=== PATIENT | female | born 1985 | race Caucasian/White ===

== ENCOUNTER 2017-12-20 13:37 | Inpatient (IN) | payer OTHER ==
[2017-12-20] MEDS ORDERED: ONDANSETRON 4 MG/2 ML VIAL IVPUSH ONE (15:36)
[2017-12-20] MEDS ORDERED: ONDANSETRON 4 MG/2 ML VIAL ONE (15:44)
--- NOTE | 2017-12-20 15:46 | PDOC ---
History of Present Illness - General Chief Complaint: Pain Stated Complaint: RT SIDE PAIN, VOMITING Time Seen by Provider: 12/20/17 15:25 History Source: Patient, Family Exam Limitations: No Limitations - History of Present Illness Initial Comments: This is a 32 YOF with h/o obesity who p/w right flank and RUQ pain worsening for the past 5 days, also with nausea and NBNB vomiting x6 over the past day. The pain is now 8/10, feels like muscle soreness, radiates to her entire right side, and is made worse by jostling on the car ride here to the ED. She has never had this pain and has taken no medications for the symptoms. She has not fallen or injured herself or had sick contacts lately. She denies fever, chills , epigastric pain, chest pain, SOB, dysuria, black/bloody stool, constipation, or other symptoms. Past History - Past Medical History Allergies/Adverse Reactions: Allergies Allergy/AdvReac Type Severity Reaction Status Date / Time No Known Allergies Allergy Verified 12/20/17 13:45 Home Medications: Ambulatory Orders NK [No Known Home Medication] 12/20/17 COPD: No - Suicide/Smoking/Psychosocial Hx Smoking History: Former smoker Have you smoked in the past 12 months: Yes If you are a former smoker, when did you quit?: 10/2017 Information on smoking cessation initiated: No Hx Alcohol Use: Yes (SOCIALLY) Drug/Substance Use Hx: Yes (MARIJUANA SOCIALLY) Substance Use Type: Alcohol, Marijuana Review of Systems - Review of Systems Able to Perform ROS?: Yes Constitutional: Yes: Loss of Appetite. No: Chills, Fever, Unexplained wgt Loss HEENTM: No: Nose Congestion, Throat Pain Respiratory: No: Cough, Shortness of Breath Cardiac (ROS): No: Chest Pain, Palpitations ABD/GI: Yes: Nausea, Vomiting, Other (right upper abdominal pain and right flank pain). No: Constipated : No: Burning, Dysuria Musculoskeletal: No: Back Pain, Neck Pain Integumentary: No: Bruising, Rash Neurological: No: Headache, Numbness, Tingling, Weakness, Dizziness Endocrine: No: Unexplained Weight Gain, Unexplained Weight Loss *Physical Exam - Vital Signs Last Vital Signs Temp Pulse Resp BP Pulse Ox 98.6 F 85 18 113/57 99 12/20/17 13:45 12/20/17 13:45 12/20/17 13:45 12/20/17 13:45 12/20/17 13:45 - Physical Exam General Appearance: Yes: Nourished, Appropriately Dressed, Mild Distress, Obese , Other (answering appropriately, adult female laying on left side in hospital bed, splinting right flank with right hand, holding still) HEENT: positive: EOMI, LACEY, Normal ENT Inspection, Normal Voice, Hearing Grossly Normal. negative: Scleral Icterus (R), Scleral Icterus (L), Nasal Congestion Neck: positive: Trachea midline, Supple. negative: Tender, Rigid Respiratory/Chest: positive: Lungs Clear, Normal Breath Sounds. negative: Respiratory Distress, Crackles, Rhonchi, Stridor, Wheezing Cardiovascular: positive: Regular Rhythm, Regular Rate, S1, S2. negative: Edema , Murmur Gastrointestinal/Abdominal: positive: Normal Bowel Sounds, Tender (RUQ ttp), Soft, Other (positive Armando's sign, no peritoneal signs). negative: Organomegaly, Pulsatile Mass, Distended, Guarding, Rebound Musculoskeletal: positive: Normal Inspection, CVA Tenderness (R). negative: CVA Tenderness (L), Decreased Range of Motion, Vertebral Tenderness Extremity: positive: Normal Capillary Refill, Normal Inspection, Normal Range of Motion. negative: Tender, Cyanosis Integumentary: positive: Normal Color, Dry, Warm. negative: Erythema, Rash, Bruising Neurologic: positive: operations intern II-XII NML intact (grossly), Fully Oriented, Alert, Normal Mood/Affect, Normal Response, Motor Strength 5/5 ED Treatment Course - LABORATORY CBC & Chemistry Diagram: 12/20/17 15:52 12/20/17 15:52 - RADIOLOGY Radiology Studies Ordered: Category Date Time Status CHEST X-RAY PORTABLE* [RAD] Stat Radiology 12/20/17 15:38 Ordered ABDOMEN US -LIMITED [US] Stat Ultrasound 12/20/17 15:38 Ordered Medical Decision Making - Medical Decision Making 12/20/17 15:55 DDX IBNLT cholecystitis, gallstone pancreatitis, cholangitis, renal stone, UTI/ pyelonephritis, appendicitis, musculoskeletal pain, etc. Ordered is CBCD, CMP, lipase, UA cx, RUQ US, EKG, CXR, u-preg. 01/24/18 17:00 Patient requires 0.5 mg Dilaudid in addition to Ofirmev and Zofran which she received previously. 12/20/17 18:12 Pt's labs result without leukocytosis or LFT elevations, negative lipase. US shows stone within the GB but no additional e/o cholecystitis or CBD dilation. Patient continues to have RUQ ttp on exam. Page sent to [facility] general surgeon. 12/20/17 18:40 Spoke with [facility] surgery consult Dr. Gracia, will see the patient tomorrow on the IP side. MDMB sent to [facility] [place] for admission. 12/20/17 18:46 Patient requiring repeat dose of Dilaudid as her pain has returned. 12/20/17 18:[address] Rubin who agrees with admission to Med/Surg. Admit order placed and consult order placed. *DC/Admit/Observation/Transfer Diagnosis at time of Disposition: Cholelithiasis Qualifiers: Cholelithiasis location: gallbladder Cholecystitis presence: without cholecystitis Biliary obstruction: with biliary obstruction Qualified Code(s): K80.21 - Calculus of gallbladder without cholecystitis with obstruction Vomiting Qualifiers: Vomiting type: unspecified Vomiting Intractability: non-intractable Nausea presence: with nausea Qualified Code(s): R11.2 - Nausea with vomiting, unspecified Abdominal pain Qualifiers: Abdominal location: right lower quadrant Qualified Code(s): R10.31 - Right lower quadrant pain - Discharge Dispostion Condition at time of disposition: Guarded Admit: Yes - Referrals Referrals: Brannon Mensah [Primary Care Provider] - - Patient Instructions - Post Discharge Activity
[2017-12-20 16:45] LABS: BASO % 0.2 % (0-2.0); EOS % 0.9 % (0-4.5); HEMATOCRIT 32.7 % (32.4-45.2); HEMOGLOBIN 10.1 GM/dL (10.7-15.3); MCH 21.3 pg (25.7-33.7); MEAN CELL VOLUME 68.7 fl (80-96); MEAN PLT VOLUME 8.1 fl (7.5-11.1); MONO % 7.1 % (3.8-10.2); NEUT % 63.8 % (42.8-82.8); PLATELET COUNT 208 K/MM3 (134-434); RBC 4.76 M/mm3 (3.60-5.2); WHITE BLOOD COUNT 9.1 K/mm3 (4.0-10.0)
[2017-12-20] MEDS ORDERED: HYDROmorphone HCL CARPU-JECT 1 MG/1 ML DISP.SYRIN IVPUSH ONE ×2 (16:46→18:45)
[2017-12-20 16:47] LABS: ADD RBC MORPHOLOGY YES
[2017-12-20] MEDS ORDERED: HYDROmorphone HCL CARPU-JECT 2 MG/1 ML DISP.SYRIN ONE ×2 (16:50→19:22)
[2017-12-20 16:55] LABS: URINE APPEARANCE CLEAR; URINE BILIRUBIN NEGATIVE (NEGATIVE); URINE BLOOD NEGATIVE (NEGATIVE); URINE COLOR LTYELLOW; URINE GLUCOSE (UA) NEGATIVE (NEGATIVE); URINE KETONE NEGATIVE (NEGATIVE); URINE LEUK ESTERASE TRACE (NEGATIVE); URINE NITRITE NEGATIVE (NEGATIVE); URINE PROTEIN NEGATIVE (NEGATIVE); URINE UROBILINOGEN NEGATIVE mg/dL (0.2-1.0)
[2017-12-20 17:05] LABS: EPI CELLS RARE /HPF (FEW); URINE MUCUS RARE
[2017-12-20 17:09] LABS: ALBUMIN 3.1 g/dl (3.4-5.0); ANION GAP 10 (8-16); BILIRUBIN,TOTAL 0.3 mg/dL (0.2-1.0); BLOOD UREA NITROGEN 8 mg/dL (7-18); CALCIUM 8.2 mg/dL (8.5-10.1); CHLORIDE 105 mmol/L (98-107); CO2 26 mmol/L (21-32); CREATININE 0.5 mg/dL (0.55-1.02); GLUCOSE,RANDOM 75 mg/dL (74-106); MAGNESIUM 2.1 mg/dL (1.8-2.4); PHOSPHOROUS 2.3 mg/dL (2.5-4.9); POTASSIUM 4.1 mmol/L (3.5-5.1); SGOT/AST 11 U/L (15-37); SGPT/ALT 22 U/L (12-78); SODIUM 141 mmol/L (136-145); TOT PROT 6.6 g/dl (6.4-8.2)
[2017-12-20 17:10] LABS: ALK PHOS 79 U/L (45-117)
--- NOTE | 2017-12-20 18:01 | PDOC ---
Attending Attestation - Resident Resident Name: Reva Hodge - ED Attending Attestation I have performed the following: I have examined & evaluated the patient, The case was reviewed & discussed with the resident, I agree w/resident's findings & plan, Exceptions are as noted - HPI HPI: 12/20/17 17:59 32 F with h/o obesity presenting to ER with several days of RUQ pain. Pt reports intermittent RUQ pain associated with nausea and vomiting for about 5 days. She endorses pain radiating down her entire right side. Denies F/C. Denies diarrhea/constipation. Pt denies flank pain, denies dysuria. States the pain is often exacerbated by eating. - Physicial Exam PE: 12/20/17 18:00 "GENERAL: Awake, alert, and fully oriented, in no acute distress HEAD: No signs of trauma EYES: PERRLA, EOMI, sclera anicteric, conjunctiva clear ENT: Auricles normal inspection, hearing grossly normal, nares patent, oropharynx clear without exudates. Moist mucosa NECK: Nontender, no stepoffs, Normal ROM, supple, no lymphadenopathy, JVD, or masses LUNGS: Breath sounds equal, clear to auscultation bilaterally. No wheezes, and no crackles HEART: Regular rate and rhythm, normal S1 and S2, no murmurs, rubs or gallops ABDOMEN: +RUQ TTP, no rebound/guarding, obese EXTREMITIES: Normal range of motion, no edema. No clubbing or cyanosis. No cords, erythema, or tenderness NEUROLOGICAL: Cranial nerves II through XII intact. 5/5 strength and sensation in all extremities, Normal speech, normal gait SKIN: Warm, Dry, normal turgor, no rashes or lesions noted. " - Medical Decision Making 12/20/17 18:00 32 F with RUQ pain + N/V for 5 days. Concerning for cholecystitis. Also consider pancreatitis. - Labs, lipase, UA - RUQ sono
[2017-12-20] MEDS ORDERED: PIPERACIL/TAZOB 3.375 GM 3.375 GM/50 ML PREMIX IVPB ONE (18:36)
[2017-12-20] MEDS ORDERED: PIPERACILLIN/TAZOB 3.375 GM 3.375 GM in DEXTROSE 5%-WATER - 100 ML IVPB ONE (18:45)
[2017-12-20] MEDS ORDERED: PIPERACILLIN/TAZOB 3.375 GM 3.375 GM/50 ML BAG IVPB ONE (19:23)
--- NOTE | 2017-12-20 19:24 | PN ---
Teaching Attending Note Name of Resident: Kathrin Noel ATTENDING PHYSICIAN STATEMENT I saw and evaluated the patient. I reviewed the resident's note and discussed the case with the resident. I agree with the resident's findings and plan as documented. SUBJECTIVE: 32 F with hx. of Obesity who presents with RUQ pain X 5 days duration. Also, notes associated nausea and non-bilious vomiting X 6. Notes her pain is 8/10. States her pain is mostly located in her RLQ radiating to her tight flank. Also , Has RUQ pain. NO chest pain, pressure, fevers or chills. OBJECTIVE: Physical: VS: Vital Signs Period Temp Pulse Resp BP Sys/Hernandez Pulse Ox Last 24 Hr 98.6 F 83-85 18-18 113-129/57-82 96-99 GEN: NAD, Resting in bed, AA0X3 HEENT: NCAT, PERRL, throat without erythema or exudates CARD: RRR S1, S2 RESP: CTAB ABD:BSx4, TTP RLQ EXT: - C/C/E CBCD WBC 9.1 K/mm3 (4.0-10.0) 12/20/17 15:52 RBC 4.76 M/mm3 (3.60-5.2) 12/20/17 15:52 Hgb 10.1 GM/dL (10.7-15.3) L 12/20/17 15:52 Hct 32.7 % (32.4-45.2) 12/20/17 15:52 MCV 68.7 fl (80-96) L 12/20/17 15:52 MCHC 31.0 g/dl (32.0-36.0) L 12/20/17 15:52 RDW 20.0 % (11.6-15.6) H 12/20/17 15:52 Plt Count 208 K/MM3 (134-434) 12/20/17 15:52 MPV 8.1 fl (7.5-11.1) 12/20/17 15:52 CMP Sodium 141 mmol/L (136-145) 12/20/17 15:52 Potassium 4.1 mmol/L (3.5-5.1) 12/20/17 15:52 Chloride 105 mmol/L (98-107) 12/20/17 15:52 Carbon Dioxide 26 mmol/L (21-32) 12/20/17 15:52 Anion Gap 10 (8-16) 12/20/17 15:52 BUN 8 mg/dL (7-18) 12/20/17 15:52 Creatinine 0.5 mg/dL (0.55-1.02) L 12/20/17 15:52 Creat Clearance w eGFR > 60 (>60) 12/20/17 15:52 Random Glucose 75 mg/dL (74-106) 12/20/17 15:52 Calcium 8.2 mg/dL (8.5-10.1) L 12/20/17 15:52 Total Bilirubin 0.3 mg/dL (0.2-1.0) 12/20/17 15:52 AST 11 U/L (15-37) L 12/20/17 15:52 ALT 22 U/L (12-78) 12/20/17 15:52 Alkaline Phosphatase 79 U/L (45-117) 12/20/17 15:52 Total Protein 6.6 g/dl (6.4-8.2) 12/20/17 15:52 Albumin 3.1 g/dl (3.4-5.0) L 12/20/17 15:52 CXR- Negative ABS US- Cholelithiasis w/o sonographic evidence of acute choley. Diffuse fatty infilteration of the liver. ASSESSMENT AND PLAN: 32 F with hx. of Obesity who presents with RUQ pain X 5 days duration, who is being admitted for abdominal pain 1.) Abdominal Pain - Ddx: Acute Choleycystitis Vs. Acute Appendicitis - CT Abd/Pelvis - Sx Consult - HIDA in AM - NPO - IVF - C/W Zosyn - ID consult - Cx 2.) Dvt Ppx - Low Risk - SCDS Place in Med-Sx
[2017-12-20 20:23] LABS: ANISOCYTOSIS 2+; OVALOCYTE 1+; PLATELET ESTIMATE ADEQUATE
--- NOTE | 2017-12-20 20:47 | MSN ---
Admitting History and Physical - Admission Chief Complaint: Right upper quadrant abdominal pain History of Present Illness: Pt is a 32 y/o female presenting with right upper quadrant abdominal pain that began in September of 2017. Pt claims that the pain is constant and dull in nature. The pain radiates down to the right lower extremity. Patient has had vomiting but no hematemesis. Pt denies that it is exacerbated by ingestion of food. She has not taken any medication for the pain. Patient recently returned from a trip to [place] but denies any food or events there that exacerbated the pain. Pt denies any fever, chills, chest pain, shortness of breath, diarrhea or dysuria. History Source: Patient Limitations to Obtaining History: No Limitations - Past Surgical History Past Surgical History: Yes: None - Smoking History Smoking history: Former smoker Have you smoked in the past 12 months: Yes If you are a former smoker, when did you quit?: 10/2017 - Alcohol/Substance Use Hx Alcohol Use: Yes (SOCIALLY) - Social History Usual Living Arrangement: Yes: With Significant Other History of Recent Travel: Yes (Traveled to [place]) Home Medications - Allergies Allergies/Adverse Reactions: Allergies Allergy/AdvReac Type Severity Reaction Status Date / Time No Known Allergies Allergy Verified 12/20/17 13:45 - Home Medications Home Medications: Ambulatory Orders NK [No Known Home Medication] 12/20/17 Physical Examination Vital Signs: Vital Signs Temperature 98.6 F 12/20/17 13:45 Pulse Rate 83 12/20/17 19:31 Respiratory Rate 18 12/20/17 19:31 Blood Pressure 129/82 12/20/17 19:31 O2 Sat by Pulse Oximetry (%) 96 12/20/17 19:31 Constitutional: Yes: Well Nourished, No Distress, Calm Cardiovascular: Yes: Regular Rate and Rhythm Respiratory: Yes: Regular, CTA Bilaterally Gastrointestinal: Yes: Normal Bowel Sounds, Soft Edema: No Labs: CBC, BMP 12/20/17 15:52 12/20/17 15:52 Problem List - Problems (1) Cholelithiasis Assessment/Plan: -IV Fluids -Pain management -Consult surgery for evaluation Code(s): K80.20 - CALCULUS OF GALLBLADDER W/O CHOLECYSTITIS W/O OBSTRUCTION Qualifiers: Cholelithiasis location: gallbladder Cholecystitis presence: without cholecystitis Biliary obstruction: with biliary obstruction Qualified Code(s ): K80.21 - Calculus of gallbladder without cholecystitis with obstruction
[2017-12-20 21:01] VITALS: BMI 45.9
[2017-12-20] MEDS: SODIUM CHLORIDE 1,000 ML IV SCH (22:32)
[2017-12-20] MEDS: ONDANSETRON 4 MG/2 ML VIAL IVPUSH PRN (22:34)
[2017-12-20] MEDS ORDERED: morphine CARPU-JECT 8 MG/1 ML DISP.SYRIN IVPUSH ONE (23:26)
--- NOTE | 2017-12-20 23:32 | HP ---
CHIEF COMPLAINT: RUQ pain PCP: HISTORY OF PRESENT ILLNESS: 33 y/o obese F with no significant PMH presents to the ED c/o R flank and RUQ pain for the past five days, as well as six episodes of NBNB emesis. As per pt, ever since September, she has had intermittent RUQ pain. However, she has never seen a PCP or GI doctor to have it checked, though it has constantly bothered her. This past weekend, she went to [place] to celebrate her birthday and noticed increased severity in RUQ pain upon returning from her trip --09/05, with constant soreness/throbbing sensation, and radiation down to her R knee. Pain was not alleviated with advil or massage of the area. Pt also endorses 5-6 episodes of NBNB emesis during this time, as well as multiple loose BM's ( without blood). Pt denies a/w food, however states that she last ate chicken wings before the episode worsened. Otherwise, denies GAMBOA, fever, chills, SOB, or changes in urinary function. ER course was notable for: (1) dilaudid 0.5 mg x 2 (2) zofran x 1 (3) zosyn 3.375 x 1 Recent Travel: to [place] this past weekend PAST MEDICAL HISTORY: denies PAST SURGICAL HISTORY: denies Social History: Smoking: quit smoking 1.5 months ago, had smoked on and off prior for ~10 yrs Alcohol: socially Drugs: marijuana in past, quit Family History: denies Allergies No Known Allergies Allergy (Verified 12/20/17 13:45) HOME MEDICATIONS: Home Medications Medication Instructions Recorded NK [No Known Home Medication] 12/20/17 REVIEW OF SYSTEMS CONSTITUTIONAL: Absent: fever, chills, diaphoresis, generalized weakness, malaise, loss of appetite, weight change HEENT: Absent: rhinorrhea, nasal congestion, throat pain, throat swelling, difficulty swallowing, mouth swelling, ear pain, eye pain, visual changes CARDIOVASCULAR: Absent: chest pain, syncope, palpitations, irregular heart rate, lightheadedness , peripheral edema RESPIRATORY: Absent: cough, shortness of breath, dyspnea with exertion, orthopnea, wheezing, stridor, hemoptysis GASTROINTESTINAL: +abdominal pain, nausea, vomiting, diarrhea Absent: abdominal pain, abdominal distension, nausea, vomiting, diarrhea, constipation, melena, hematochezia GENITOURINARY: Absent: dysuria, frequency, urgency, hesitancy, hematuria, flank pain, genital pain MUSCULOSKELETAL: Absent: myalgia, arthralgia, joint swelling, back pain, neck pain SKIN: Absent: rash, itching, pallor HEMATOLOGIC/IMMUNOLOGIC: Absent: easy bleeding, easy bruising, lymphadenopathy, frequent infections ENDOCRINE: Absent: unexplained weight gain, unexplained weight loss, heat intolerance, cold intolerance NEUROLOGIC: Absent: headache, focal weakness or paresthesias, dizziness, unsteady gait, seizure, mental status changes, bladder or bowel incontinence PSYCHIATRIC: Absent: anxiety, depression, suicidal or homicidal ideation, hallucinations. PHYSICAL EXAMINATION Vital Signs 12/20/17 12/20/17 12/20/17 13:45 19:31 20:47 Temperature 98.6 F 98.4 F Pulse Rate 85 72 Pulse Rate [ 83 Apical] Respiratory 18 18 20 Rate Blood Pressure 113/57 117/63 Blood Pressure 129/82 [Left Arm] O2 Sat by Pulse 99 96 Oximetry (%) GENERAL: Pleasant. Obese female, lying down, awake, alert, and fully oriented, in mild distress. HEAD: Normal with no signs of trauma. EYES: Pupils equal, round and reactive to light, extraocular movements intact, sclera anicteric, conjunctiva clear. EARS, NOSE, THROAT: Moist mucous membranes. NECK: Normal range of motion, supple without lymphadenopathy LUNGS: Breath sounds equal, clear to auscultation bilaterally. No wheezes, and no crackles. No accessory muscle use. HEART: Regular rate and rhythm, normal S1 and S2 without murmur, rub or gallop. ABDOMEN: Soft, obese, TTP R flank, RUQ, non distended, normoactive bowel sounds , +guarding MUSCULOSKELETAL: no CVA tenderness appreciated LOWER EXTREMITIES: 2+ posterior tibial pulses, warm, well-perfused. No peripheral edema. NEUROLOGICAL: Cranial nerves II-XII intact. Laboratory Results 12/20/17 12/20/17 12/20/17 15:52 15:52 16:15 WBC 9.1 Hgb 10.1 L Hct 32.7 Plt Count 208 Sodium 141 Potassium 4.1 Chloride 105 Carbon Dioxide 26 BUN 8 Creatinine 0.5 L Calcium 8.2 L Phosphorus 2.3 L AST 11 L Urine Appearance Clear Urine Protein Negative Ur Leukocyte Esterase Trace Urine WBC (Auto) 4 Micro -UCx: pending Radio -CXR: WNL, without infiltrates -Abd U/S: cholelithiasis, no sonographic evidence of acute cholecystitis, diffuse fatty infiltration -Renal sono: no hydronephrosis ASSESSMENT/PLAN: 33 y/o obese F with no significant PMH presents to the ED c/o R flank and RUQ pain for the past five days, as well as six episodes of NBNB emesis. Pt admitted to med-surg for r/o acute appendicitis vs. acute cholecystitis. #R/o acute appendicitis vs. acute cholecystitis -pt currently not septic- afebrile, without white count, labs WNL. CT: Cholecystitis, with no sonographic evidence cholecystitis -however still important to r/o cholecystitis -Surgery consult- Dr. Thomas -F/u CT abdomen w/o contrast - r/o appendicitis. Possible as pt has unusual complaint of RUQ pain radiation to RLE -F/u HIDA, to determine GB EF, also to check for choledocholithiasis -Also f/u amylase, lipase. R/o pancreatitis d/t abdominal pain -NPO, except ice chips -IVF -Continue Zosyn 3.35 q6hr for intraabdominal abx coverage -ID consult- Dr. Savage #PPX -SCD's, in case of possible procedure #F/E/N -IV NS 100 mls/hr -Monitor electrolytes -NPO except ice chips #Dispo med-surg Visit type - Emergency Visit Emergency Visit: Yes ED Registration Date: 12/20/17 Care time: The patient presented to the Emergency Department on the above date and was hospitalized for further evaluation of their emergent condition. - New Patient This patient is new to me today: Yes Date on this admission: 12/21/17 - Critical Care Critical Care patient: No
[2017-12-21 00:14] LABS: AMYLASE 43 U/L (25-115); LIPASE 78 U/L (73-393)
[2017-12-21] MEDS ORDERED: PIPERACILLIN/TAZOB 3.375 GM 3.375 GM in DEXTROSE 5%-WATER - 100 ML IVPB ONE (01:00)
[2017-12-21] MEDS ORDERED: PIPERACIL/TAZOB 3.375 GM 3.375 GM/50 ML PREMIX IVPB SCH (01:00)
[2017-12-21] MEDS ORDERED: morphine CARPU-JECT 2 MG/1 ML DISP.SYRIN IVPUSH PRN (05:20)
[2017-12-21] MEDS: ONDANSETRON 4 MG/2 ML VIAL IVPUSH PRN (05:57)
[2017-12-21] MEDS ORDERED: ACETAMINOPHEN 500 MG TABLET (FP) PO ONE (06:45)
--- NOTE | 2017-12-21 07:23 | MSN ---
Progress Note (short form) - Note Progress Note: SUBJECTIVE CC: RUQ pain radiating to leg HPI: Pt is a 33 y/o obese F with no significant PMHx presented to ED with complaint of R flank and RUQ pain for past five days and six episodes of non bilious, non bloody emesis. She was given dialudid 0.5 mg x2, Zofran x 1, and Zosyn 3.375 x 1 in ED for suspected cholecystis without radiographic changes vs. appendicitis. She states she has had a "sore" pain in R flank to R leg since September. She has not seen a doctor or taken anything for this pain and it has gotten progressively worse. She does not remember trauma, heavy exercises , recent massages to the area. 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 She states she sits up straight and does not sit cross legged or with poor posture. She reports it is hard to move and pain is constant; she came in yesterday because pain was limiting her ROM and she wanted to celebrate her birthday in [place], where she ate with family. She reports having to return to hotel every time she ate out, having watery, non bloody brown diarrhea with chunks. She states the pain does not change with food. She has had episodic nausea since November and started vomiting/diarrhea last Monday, 12/15. She reports having strings of blood in her vomit this AM but has never seen any blood in her vomit until today. Her vomit was bilious with no food. She reports mouth is dry. She had headache this AM and was given ASA with good relief; headache was R U/L forehead with no aura. She reports she does not like taking pills and is healthy with no significant family medical history. Pharmacy is [facility] in [facility]. Last Vital Signs Temp Pulse Resp BP Pulse Ox 98.4 F 76 20 116/52 97 12/21/17 06:00 12/21/17 06:00 12/21/17 06:00 12/21/17 06:00 12/21/17 05:49 + Lasegues, + straight leg test. CBC, BMP 12/20/17 15:52 12/20/17 15:52 Laboratory Results - last 24 hr 12/20/17 12/20/17 12/20/17 15:52 15:52 15:52 WBC 9.1 RBC 4.76 Hgb 10.1 L Hct 32.7 MCV 68.7 L MCH 21.3 L MCHC 31.0 L RDW 20.0 H Plt Count 208 MPV 8.1 Neutrophils % 63.8 Lymphocytes % 28.0 Monocytes % 7.1 Eosinophils % 0.9 Basophils % 0.2 Hypochromia 2+ Platelet Estimate Adequate Platelet Comment Polychromasia 1+ Poikilocytosis 1+ Anisocytosis 2+ Microcytosis 2+ Ovalocytes 1+ Sodium 141 Potassium 4.1 Chloride 105 Carbon Dioxide 26 Anion Gap 10 BUN 8 Creatinine 0.5 L Creat Clearance w eGFR > 60 Random Glucose 75 Calcium 8.2 L Phosphorus 2.3 L Magnesium 2.1 Total Bilirubin 0.3 AST 11 L ALT 22 Alkaline Phosphatase 79 Total Protein 6.6 Albumin 3.1 L Total Amylase Lipase 83 Urine Color Urine Appearance Urine pH Ur Specific [place] Urine Protein Urine Glucose (UA) Urine Ketones Urine Blood Urine Nitrite Urine Bilirubin Urine Urobilinogen Ur Leukocyte Esterase Urine WBC (Auto) Urine RBC (Auto) Ur Epithelial Cells Urine Mucus Urine HCG, Qual Blood Type Antibody Screen 12/20/17 12/20/17 12/20/17 16:15 16:15 21:30 WBC RBC Hgb Hct MCV MCH MCHC RDW Plt Count MPV Neutrophils % Lymphocytes % Monocytes % Eosinophils % Basophils % Hypochromia Platelet Estimate Platelet Comment Polychromasia Poikilocytosis Anisocytosis Microcytosis Ovalocytes Sodium Potassium Chloride Carbon Dioxide Anion Gap BUN Creatinine Creat Clearance w eGFR Random Glucose Calcium Phosphorus Magnesium Total Bilirubin AST ALT Alkaline Phosphatase Total Protein Albumin Total Amylase Lipase Urine Color Ltyellow Urine Appearance Clear Urine pH 6.0 Ur Specific [place] 1.016 Urine Protein Negative Urine Glucose (UA) Negative Urine Ketones Negative Urine Blood Negative Urine Nitrite Negative Urine Bilirubin Negative Urine Urobilinogen Negative Ur Leukocyte Esterase Trace Urine WBC (Auto) 4 Urine RBC (Auto) 4 Ur Epithelial Cells Rare Urine Mucus Rare Urine HCG, Qual Negative Blood Type O POSITIVE Antibody Screen Negative 12/20/17 22:30 WBC RBC Hgb Hct MCV MCH MCHC RDW Plt Count MPV Neutrophils % Lymphocytes % Monocytes % Eosinophils % Basophils % Hypochromia Platelet Estimate Platelet Comment Polychromasia Poikilocytosis Anisocytosis Microcytosis Ovalocytes Sodium Potassium Chloride Carbon Dioxide Anion Gap BUN Creatinine Creat Clearance w eGFR Random Glucose Calcium Phosphorus Magnesium Total Bilirubin AST ALT Alkaline Phosphatase Total Protein Albumin Total Amylase 43 Lipase 78 Urine Color Urine Appearance Urine pH Ur Specific [place] Urine Protein Urine Glucose (UA) Urine Ketones Urine Blood Urine Nitrite Urine Bilirubin Urine Urobilinogen Ur Leukocyte Esterase Urine WBC (Auto) Urine RBC (Auto) Ur Epithelial Cells Urine Mucus Urine HCG, Qual Blood Type Antibody Screen Active Medications Generic Name Dose Route Start Last Admin Trade Name Freq PRN Reason Stop Dose Admin Sodium Chloride 1,000 mls @ 100 mls/hr 12/20/17 22:00 12/20/17 22:32 Normal Saline - IV 100 mls/hr ASDIR SHIRAZ Administration Morphine Sulfate 1 mg 12/21/17 05:20 Morphine Injection - IVPUSH Q4H PRN PAIN LEVEL 6-10 Ondansetron HCl 4 mg 12/20/17 21:50 12/21/17 05:57 Zofran Injection IVPUSH 4 mg Q6H PRN Administration NAUSEA AND/OR VOMITING Piperacillin/Tazobactam/Dextrose 3.375 gm 12/21/17 01:00 Zosyn 3.375gm Ivpb (Premix) IVPB Q6H-IV SHIRAZ
[2017-12-21 09:08] LABS: BASO % 0.2 % (0-2.0); EOS % 0.6 % (0-4.5); HEMATOCRIT 33.1 % (32.4-45.2); HEMOGLOBIN 9.8 GM/dL (10.7-15.3); MCH 20.5 pg (25.7-33.7); MCHC 29.5 g/dl (32.0-36.0); MEAN CELL VOLUME 69.3 fl (80-96); MEAN PLT VOLUME 8.3 fl (7.5-11.1); MONO % 7.1 % (3.8-10.2); NEUT % 77.1 % (42.8-82.8); PLATELET COUNT 198 K/MM3 (134-434); RBC 4.78 M/mm3 (3.60-5.2); RDW 19.9 % (11.6-15.6); WHITE BLOOD COUNT 11.1 K/mm3 (4.0-10.0)
[2017-12-21 09:27] LABS: ANION GAP 10 (8-16); BLOOD UREA NITROGEN 8 mg/dL (7-18); CALCIUM 8.3 mg/dL (8.5-10.1); CHLORIDE 104 mmol/L (98-107); CO2 25 mmol/L (21-32); CREATININE 0.6 mg/dL (0.55-1.02); GLUCOSE,RANDOM 88 mg/dL (74-106); MAGNESIUM 2.2 mg/dL (1.8-2.4); PHOSPHOROUS 2.6 mg/dL (2.5-4.9); POTASSIUM 3.9 mmol/L (3.5-5.1); SODIUM 139 mmol/L (136-145)
[2017-12-21] MEDS: SODIUM CHLORIDE 1,000 ML IV SCH (10:17)
--- NOTE | 2017-12-21 10:21 | PN ---
Progress Note (short form) - Note Progress Note: surgery pt seen and exmained. full consult to follow. 32f admitted for acute cholecystitis with gallstones on u/s. exam consistent with acute cholecystitis and ct r/o appendicitis. pt still with right sided pain despite abx and npo. will plan for choleycystectomy today. cont npo and abx. pt not responding to medical managment.
--- NOTE | 2017-12-21 10:32 | EKG ---
Test Reason : Blood Pressure : / mmHG Vent. Rate : 064 BPM Atrial Rate : 064 BPM P-R Int : 156 ms QRS Dur : 080 ms QT Int : 402 ms P-R-T Axes : 002 045 020 degrees QTc Int : 414 ms POOR DATA QUALITY, INTERPRETATION MAY BE ADVERSELY AFFECTED NORMAL SINUS RHYTHM WITH SINUS ARRHYTHMIA NORMAL ECG NO PREVIOUS ECGS AVAILABLE Confirmed by SHELLIE SANDHU MD ([id number]) on 12/21/2017 10:32:28 AM Referred By: Confirmed By:SHELLIE SANDHU MD
[2017-12-21] MEDS ORDERED: HYDROmorphone HCL CARPU-JECT 1 MG/1 ML DISP.SYRIN IVPUSH PRN (10:37)
--- NOTE | 2017-12-21 11:35 | PN ---
Progress Note (short form) - Note Progress Note: ID Consult dictated Acute cholecystitis For cholecystectomy later today Continue prophylactic zosyn perioperatively
[2017-12-21] MEDS ORDERED: PIPERACILLIN/TAZOB 4.5 GM 4.5 GM/100 ML BAG IVPB SCH (11:45)
--- NOTE | 2017-12-21 12:27 | CONS ---
DATE OF CONSULTATION: 12/21/2017 REASON FOR CONSULTATION: Acute cholecystitis and cholelithiasis. REQUESTING PHYSICIAN: This is an emergency room consultation requested by the emergency room physician. The patient was subsequently admitted to the hospital and is being seen and evaluated there. BRIEF HISTORY: This is a 32-year-old female who presented to [facility] with severe right upper quadrant abdominal pain, nausea, and vomiting for several days. The emergency department was concerned for acute cholecystitis, and an ultrasound report done in the emergency room confirmed gallstones. Patient was admitted to the hospital and started on intravenously antibiotic Zosyn. Despite this, she has remained in pain overnight, although she is no longer having nausea or vomiting. She went for a CT scan of her abdomen and pelvis this morning, which was unremarkable, the exception of gallstones noted. PAST MEDICAL HISTORY: Negative. PAST SURGICAL HISTORY: Nil. SOCIAL HISTORY: Significant for quitting tobacco. Positive for occasional alcohol consumption. FAMILY HISTORY: Negative for malignancy in the immediate family. REVIEW OF SYSTEMS: General: Denies fatigue or malaise. Cardiac: Denies chest pain or palpitations. Respiratory: Denies shortness of breath or wheeze. Gastrointestinal: Currently, she has only mild nausea. She did have vomiting yesterday. Genitourinary: Denies dysuria. Musculoskeletal: Denies joint pain, joint swelling. Psychiatric: Denies anxiety, depression, or hearing voices. PHYSICAL EXAMINATION: General: This is a morbidly obese 32-year-old female who appears to be in pain. Vital signs: She is afebrile. HEENT: Her head is normocephalic. Her sclerae anicteric. Neck: Supple. Chest: Clear. Abdomen: Soft. She has significant right upper quadrant tenderness with rebound. She has no surgical scars, no obvious hernias. Extremities: Have no edema. REVIEW OF HER LABORATORY: Her white blood cell count is now elevated at 11.1, which is an increase from yesterdays arrival in the emergency room. She also now has a higher percentage of neutrophils. Her chemistries are unremarkable with normal liver function test. Her urinalysis is noted to have 4 white blood cells and 4 red blood cells. She is not . IMAGING: As in HPI. There is no evidence of obstructive uropathy on CT scan, as well. ASSESSMENT: This is a 32-year-old female with severe right upper quadrant pain, nausea and vomiting, right upper quadrant tenderness with rebound and a rising white blood cell count despite Zosyn antibiotic. Ultrasound and CT scan both confirm cholelithiasis. Clinically, this is acute cholecystitis, not responding well to medical management. At this point, I agree with the choice of Zosyn antibiotic and will move in the direction of surgery. Currently, make plans for arranging an operating team. Patient is agreeable to surgery and does not wish to continue any further medical management. Risks and benefits of surgery have been explained to the patient in detail. These are including, but not limited to, the possibility of conversion to open, the possibility of common bile duct injury, the possibility of cystic duct stump leak, possibility of injury to viscera, the possibility of blood loss requiring blood transfusion, possibility of infection, the possibility of misdiagnosis, plus a multitude of medical risks including, but not limited to, cardiac, neurologic, pulmonary, and vascular complications, even . The patient understands these risks and is agreeable to surgery. DO RIVKA GUADARRAMA/[id number]
--- NOTE | 2017-12-21 12:54 | CONS ---
INFECTIOUS DISEASE CONSULTATION DATE OF CONSULTATION: DATE OF DICTATION: 12/21/2017 REASON FOR CONSULTATION: The patient is an obese 32-year-old female who is evaluated for acute cholecystitis. HISTORY OF PRESENT ILLNESS: The patient states that she had developed right upper quadrant pains in September 2017. She did not seek medical attention at that time. Since then, she has had recurrent episodes of right upper quadrant pain. Over the past 4-5 days, she has had moderately severe right upper quadrant abdominal pain. It is now associated with nausea and vomiting for 1 day prior to admission. She presented to the emergency room where she was examined and found to have right upper quadrant tenderness. A sonogram showed the presence of gallbladder stones. CAT scan showed cholelithiasis without evidence of dilated ducts. There was no CT evidence of acute cholecystitis. The appendix appeared normal. She was empirically treated with Zosyn. She denies any associated fever or chills. PAST MEDICAL HISTORY: Negative. HOME MEDICATIONS: None. ALLERGIES: No known allergies. SOCIAL HISTORY: Lives at home. Former smoker. Occasional EtOH. SYSTEMS REVIEW: Neurologic: No loss of consciousness, seizure activity, focal weakness. Cardiac: Negative chest pain or palpitations. Respiratory: Negative cough or sputum production. Gastrointestinal: Negative vomiting or diarrhea. Genitourinary: Negative for urinary tract infection. LABORATORY DATA: White count 11.1, hematocrit 33.1, platelet count 198. BUN 8, creatinine 0.6. Total bilirubin 0.3. Alkaline phosphatase 79, AST 11. Lipase 78, amylase 43. Urinalysis: White cells 4. PHYSICAL EXAMINATION: General: She is awake and alert, obese, in no acute distress. Vital Signs: Temperature 98.0; blood pressure 102/68; pulse 72, regular; respirations 20 per minute. HEENT: Sclerae are anicteric. Heart: Sounds S1, S2. Lungs: Clear. Abdomen: Obese, soft. There is right upper quadrant tenderness to palpation. Positive Armando sign. Extremities: Negative for edema. IMPRESSION: 1. Acute cholecystitis. 2. Morbid obesity. RECOMMENDATIONS: Continue prophylactic Zosyn 4.5 g IV piggyback every 8 hours. Patient for cholecystectomy later today. Thank you for the kind referral. Mana [id number]
--- NOTE | 2017-12-21 15:56 | OP ---
Operative Note - Note: Operative Date: 12/21/17 Pre-Operative Diagnosis: acute cholecystitis, cholelithiasis Operation: laparoscopic cholecystectomy, lavage Findings: pale, edematous gb Surgeon: Keith Lyn Licensed Certified Orthotist: Chicho Sanz Anesthesia: General Specimens Removed: gb Estimated Blood Loss (mls): 10
[2017-12-21] MEDS ORDERED: ROCURONIUM BROMIDE 50 MG/5 ML VIAL ONE (16:24)
[2017-12-21] MEDS ORDERED: fentaNYL CITRATE 250 MCG/5 ML VIAL ONE (16:24)
[2017-12-21] MEDS ORDERED: PROPOFOL 20 ML ONE ×2 (16:24→17:11)
[2017-12-21] MEDS ORDERED: LIDOCAINE HCL/PF 2% SDV 5ML VIAL ONE (16:25)
[2017-12-21] MEDS ORDERED: DEXAMETHASONE SOD PHOSPHATE 4 MG/1 ML VIAL ONE ×2 (16:25→16:47)
[2017-12-21] MEDS ORDERED: MIDAZOLAM HCL 2 MG/2 ML SINGLE DOSE VIAL ONE (16:25)
--- NOTE | 2017-12-21 16:33 | PN ---
Teaching Attending Note Name of Resident: Beck Arenas ATTENDING PHYSICIAN STATEMENT I saw and evaluated the patient. I reviewed the resident's note and discussed the case with the resident. I agree with the resident's findings and plan as documented. SUBJECTIVE:c/o R flank pain that has persisted. slight relief with pain medications. states she been having this on/off pain for 2 months now. can not relate pain to eating or activity. no recent change to diet, however was recently in [place] on vacation. no trauma or physical activity. denies CP, SOB, fever, chills, N/V/C/D OBJECTIVE: Last Vital Signs Temp Pulse Resp BP Pulse Ox 98.1 F 70 20 110/67 97 12/21/17 14:43 12/21/17 14:43 12/21/17 09:00 12/21/17 14:43 12/21/17 09:00 General NAD CV S1 S2 RRR no murmur/rub/gallop Lungs CTA B/L no wheezing/rales/rhonchi Abdomen soft +RUQ pain +rueda sign. negative rovsing sign.mcburney point, negative obtruator sign Back no bone point tenderness, +muscle spasm on the L thoracic vertebrae ASSESSMENT AND PLAN: 32yo F with PMH morbid obesity presented to the ER with nausea/vomiting and R flank pain 1. Biliary colic- multiple episodes of biliary colic. pain persistes despite NPO and abx. u/s and CT showing cholelithasis but no acute cholecystitis, CBD normal. negative for acute appendicitis. plan for HIDA scan and OR for cholecystectomy. cont zosyn for now. will likely not require postoperatively. pain control 2. Morbid obesity- BMI 45.9. dietary and lifestyle changes. bariatric referral as outpatient. 3. DVT ppx- lovenox
--- NOTE | 2017-12-21 16:52 | PN ---
Physical Exam: SUBJECTIVE: Patient seen and examined. Complains of RUQ abdominal pain, and flank pain that radiates down to the right leg. She also endorses nausea, vomiting and headache. She says she has not had a BM. OBJECTIVE: Vital Signs Period Temp Pulse Resp BP Sys/Hernandez Pulse Ox Last 24 Hr 98.0 F-98.4 F 70-83 18-20 102-129/52-82 96-97 GENERAL: morbidly obese, Curled in position. In mild distress. HEAD: Normal with no signs of trauma. EYES: Pupils equal, round and reactive to light, extraocular movements intact, sclera anicteric, conjunctiva clear EARS, NOSE, THROAT: Dry mucous membranes. NECK: supple without lymphadenopathy LUNGS: Breath sounds equal, clear to auscultation bilaterally. No wheezes, and no crackles. No accessory muscle use. HEART: Regular rate and rhythm, normal S1 and S2 without murmur, rub or gallop. ABDOMEN: +BS, RUQ/RLQ tenderness to palpation with guarding. + rueda sign, +R CVA tenderness MUSCULOSKELETAL: Normal range of motion at all joints. No bony deformities or tenderness. No CVA tenderness. LOWER EXTREMITIES: cool lower extremities b/l. No calf tenderness. No peripheral edema. NEUROLOGICAL: Cranial nerves II-XII intact. Laboratory Results - last 24 hr 12/20/17 12/20/17 12/20/17 15:52 15:52 15:52 WBC 9.1 RBC 4.76 Hgb 10.1 L Hct 32.7 MCV 68.7 L MCH 21.3 L MCHC 31.0 L RDW 20.0 H Plt Count 208 MPV 8.1 Neutrophils % 63.8 Lymphocytes % 28.0 Monocytes % 7.1 Eosinophils % 0.9 Basophils % 0.2 Hypochromia 2+ Platelet Estimate Adequate Platelet Comment Polychromasia 1+ Poikilocytosis 1+ Anisocytosis 2+ Microcytosis 2+ Ovalocytes 1+ Sodium 141 Potassium 4.1 Chloride 105 Carbon Dioxide 26 Anion Gap 10 BUN 8 Creatinine 0.5 L Creat Clearance w eGFR > 60 Random Glucose 75 Calcium 8.2 L Phosphorus 2.3 L Magnesium 2.1 Total Bilirubin 0.3 AST 11 L ALT 22 Alkaline Phosphatase 79 Total Protein 6.6 Albumin 3.1 L Total Amylase Lipase 83 Urine Color Urine Appearance Urine pH Ur Specific [place] Urine Protein Urine Glucose (UA) Urine Ketones Urine Blood Urine Nitrite Urine Bilirubin Urine Urobilinogen Ur Leukocyte Esterase Urine WBC (Auto) Urine RBC (Auto) Ur Epithelial Cells Urine Mucus Urine HCG, Qual Blood Type Antibody Screen 12/20/17 12/20/17 12/20/17 16:15 16:15 21:30 WBC RBC Hgb Hct MCV MCH MCHC RDW Plt Count MPV Neutrophils % Lymphocytes % Monocytes % Eosinophils % Basophils % Hypochromia Platelet Estimate Platelet Comment Polychromasia Poikilocytosis Anisocytosis Microcytosis Ovalocytes Sodium Potassium Chloride Carbon Dioxide Anion Gap BUN Creatinine Creat Clearance w eGFR Random Glucose Calcium Phosphorus Magnesium Total Bilirubin AST ALT Alkaline Phosphatase Total Protein Albumin Total Amylase Lipase Urine Color Ltyellow Urine Appearance Clear Urine pH 6.0 Ur Specific [place] 1.016 Urine Protein Negative Urine Glucose (UA) Negative Urine Ketones Negative Urine Blood Negative Urine Nitrite Negative Urine Bilirubin Negative Urine Urobilinogen Negative Ur Leukocyte Esterase Trace Urine WBC (Auto) 4 Urine RBC (Auto) 4 Ur Epithelial Cells Rare Urine Mucus Rare Urine HCG, Qual Negative Blood Type O POSITIVE Antibody Screen Negative 12/20/17 12/21/17 12/21/17 22:30 08:00 08:00 WBC 11.1 H RBC 4.78 Hgb 9.8 L Hct 33.1 MCV 69.3 L MCH 20.5 L MCHC 29.5 L RDW 19.9 H Plt Count 198 MPV 8.3 Neutrophils % 77.1 D Lymphocytes % 15.0 D Monocytes % 7.1 Eosinophils % 0.6 Basophils % 0.2 Hypochromia Platelet Estimate Platelet Comment Polychromasia Poikilocytosis Anisocytosis Microcytosis Ovalocytes Sodium 139 Potassium 3.9 Chloride 104 Carbon Dioxide 25 Anion Gap 10 BUN 8 Creatinine 0.6 Creat Clearance w eGFR Random Glucose 88 Calcium 8.3 L Phosphorus 2.6 Magnesium 2.2 Total Bilirubin AST ALT Alkaline Phosphatase Total Protein Albumin Total Amylase 43 Lipase 78 Urine Color Urine Appearance Urine pH Ur Specific [place] Urine Protein Urine Glucose (UA) Urine Ketones Urine Blood Urine Nitrite Urine Bilirubin Urine Urobilinogen Ur Leukocyte Esterase Urine WBC (Auto) Urine RBC (Auto) Ur Epithelial Cells Urine Mucus Urine HCG, Qual Blood Type Antibody Screen Active Medications Generic Name Dose Route Start Last Admin Trade Name Freq PRN Reason Stop Dose Admin Enoxaparin Sodium 40 mg 12/22/17 10:00 Lovenox - SQ DAILY SHIRAZ Hydromorphone HCl 0.5 mg 12/21/17 10:37 12/21/17 10:52 Dilaudid Injection - IVPUSH 0.5 mg Q4H PRN Administration PAIN LEVEL 6-10 Sodium Chloride 1,000 mls @ 100 mls/hr 12/20/17 22:00 12/21/17 10:17 Normal Saline - IV 100 mls/hr ASDIR SHIRAZ Administration Piperacillin/Tazobactam/Dextrose 4.5 gm in 100 mls @ 200 mls/hr 12/21/17 11: 45 12/21/17 11:54 Zosyn 4.5gm Ivpb (Premix) IVPB 200 mls/hr Q8H-IV SHIRAZ Administration Protocol Ondansetron HCl 4 mg 12/20/17 21:50 12/21/17 05:57 Zofran Injection IVPUSH 4 mg Q6H PRN Administration NAUSEA AND/OR VOMITING Oxycodone HCl 7.5 mg 12/21/17 15:54 Roxicodone - PO Q4H PRN PAIN LEVEL 1-5 Pantoprazole Sodium 40 mg 12/22/17 10:00 Protonix Iv IVPUSH DAILY SHIRAZ Radio -CXR: WNL, without infiltrates -Abd U/S: cholelithiasis, no sonographic evidence of acute cholecystitis, diffuse fatty infiltration -Renal sono: no hydronephrosis -CT A/P w/o IV contrast: 1. Normal appendix. No evidence of bowel obstruction. No definite bowel wall thickening. 2. Cholelithiasis. No CT evidence of acute cholecystitis. Common bile duct is not dilated. 3. No obstructive uropathy. No evidence of urinary tract calculus. 4. Mild hepatic steatosis. ASSESSMENT/PLAN: 32yo F with PMH morbid obesity presented to the ER with nausea/vomiting and R flank pain and was found to have cholelithiasis. #Biliary colic -Abd U/S: cholelithiasis, no sonographic evidence of acute cholecystitis, diffuse fatty infiltration -persistent pain depsite NPO and Abx -Not septic, afebrile, no white count -Cont IV Abx, Zosyn 4.5gm -ID consult- Dr. Savage -CT A/P w/o contrast: Normal appendix. Cholelithiasis. No CT evidence of acute cholecystitis. Common bile duct is not dilated. -Surgery consult- Dr. Lyn: laparoscopic cholecystectomy scheduled for today. -Cont. Pain control w/ Oxycodone 7.5g q4h -NPO -IVF #Morbid Obesity -BMI 45.9 -Dietary and lifestyle changes -Bariatric referral as oupatient #PPX -SCD's, for scheduled surgery -Lovenox held #FEN -IV NS 100 mls/hr -Monitor electrolytes -NPO except ice chips #Dispo Will plan D/c once surgery completed and patient clinically stable for discharge. Visit type - Emergency Visit Emergency Visit: Yes ED Registration Date: 12/20/17 Care time: The patient presented to the Emergency Department on the above date and was hospitalized for further evaluation of their emergent condition. - New Patient This patient is new to me today: Yes Date on this admission: 12/21/17 - Critical Care Critical Care patient: No
[2017-12-21] MEDS ORDERED: NEOSTIGMINE METHYLSULFATE 0.5 MG/ML - 10 ML MDV ONE (17:13)
[2017-12-21] MEDS ORDERED: PROMETHAZINE HCL 25 MG/1 ML VIAL IVPUSH PRN (17:46)
[2017-12-21] MEDS: HYDROmorphone HCL CARPU-JECT 1 MG/1 ML DISP.SYRIN IVPUSH PRN ×2 (17:55→18:15)
[2017-12-21] MEDS ORDERED: HYDROmorphone HCL CARPU-JECT 2 MG/1 ML DISP.SYRIN ONE (17:57)
[2017-12-21] MEDS ORDERED: SODIUM CHLORIDE 1,000 ML IV SCH (18:00)
[2017-12-21] MEDS ORDERED: ONDANSETRON 4 MG/2 ML VIAL IVPUSH PRN (18:00)
[2017-12-21] MEDS ORDERED: HYDROmorphone HCL CARPU-JECT 2 MG/1 ML DISP.SYRIN IVPUSH PRN (18:00)
[2017-12-21] MEDS ORDERED: KETOROLAC TROMETHAMINE 30 MG/1 ML VIAL ONE (18:20)
[2017-12-21] MEDS ORDERED: PIPERACILLIN/TAZOBACTAM 4.5 GM VIAL IVPB ONE (19:30)
--- NOTE | 2017-12-21 21:02 | OP ---
DATE OF OPERATION: 12/21/2017 PREOPERATIVE DIAGNOSIS: Acute Cholecystitis. POSTOPERATIVE DIAGNOSIS: Acute Cholecystitis. PROCEDURE: Laparoscopic cholecystectomy, lavage. SURGEON: Keith Lyn DO TECHNICAL DEVELOPER: Chicho Sanz MD ANESTHESIOLOGIST: Sean Polk MD (general) DRAINS: None. SPECIMEN: Gallbladder. DISPOSITION: To recovery room in stable condition. BLOOD LOSS: Minimal. BRIEF HISTORY: This is a 32-year-old female who presented to [facility] Emergency Room with signs and symptoms of acute cholecystitis. She had an ultrasound of her abdomen as well as a CAT scan both confirming gallstones. The patient had significant right upper quadrant tenderness and clinically had acute cholecystitis. She presents now for cholecystectomy. She was failing medical management on Zosyn. DESCRIPTION OF PROCEDURE: The patient was placed in a supine position. After general anesthesia was initiated, the abdomen was prepped and draped in sterile fashion. A transverse incision was made infraumbilical with scalpel used to go through skin and subcutaneous tissue. The fascia was then lifted with Jacinto clamp. Veress needle was inserted, and pneumoperitoneum was created. Next, an 11-mm trocar was placed followed by insertion of a 10-mm 0-degree laparoscope. Next, an additional 11-mm trocar was placed subxiphoid, and two 5-mm trocars were placed in the right upper quadrant. Attention was then turned toward the right upper quadrant, and the gallbladder was seen. It was pale, edematous, distended consistent with acute cholecystitis. The fundus was lifted cephalad. The infundibulum retracted laterally. The peritoneum was dissected down exposing a small cystic duct and cystic artery. Both were clipped and divided. The gallbladder was then liberated from the liver bed using electrocautery, and hemostasis was maintained using electrocautery. At this point, the gallbladder was placed in a specimen bag and removed through the infraumbilical trocar site after a significant fascial dilatation and skin lengthening in order to deliver such a thickened gallbladder. The gallbladder was then sent to Pathology marked as specimen. A limited lavage was done, and all return was clear. Trocars were then removed under direct visualization. No bleeding was noted. Pneumoperitoneum was then released. The fascia of the infraumbilical trocar site was then closed with multiple interrupted 0 Vicryl sutures. The 4 skin incisions were closed with Biosyn, and Dermabond dressing was placed. Overall, the patient tolerated the procedure well. There were no complications. DO RIVKA GUADARRAMA/[id number] MTDD
[2017-12-21] MEDS: oxyCODONE HCL 5 MG TABLET PO PRN (21:46)
[2017-12-22] MEDS: oxyCODONE HCL 5 MG TABLET PO PRN ×5 (01:37→22:43)
[2017-12-22] MEDS: PIPERACILLIN/TAZOB 4.5 GM 4.5 GM in DEXTROSE 5%-WATER - 100 ML IVPB SCH ×2 (02:35→09:40)
[2017-12-22 08:47] LABS: HEMATOCRIT 29.7 % (32.4-45.2); HEMOGLOBIN 8.8 GM/dL (10.7-15.3); MCH 20.3 pg (25.7-33.7); MCHC 29.5 g/dl (32.0-36.0); MEAN CELL VOLUME 68.7 fl (80-96); MEAN PLT VOLUME 7.9 fl (7.5-11.1); PLATELET COUNT 199 K/MM3 (134-434); RBC 4.32 M/mm3 (3.60-5.2); RDW 20.1 % (11.6-15.6); WHITE BLOOD COUNT 12.8 K/mm3 (4.0-10.0)
[2017-12-22 09:16] LABS: CALCIUM 7.6 mg/dL (8.5-10.1); CHLORIDE 107 mmol/L (98-107); POTASSIUM 4.1 mmol/L (3.5-5.1); SODIUM 139 mmol/L (136-145)
[2017-12-22 09:21] LABS: ALBUMIN 2.9 g/dl (3.4-5.0); ALK PHOS 72 U/L (45-117); ANION GAP 8 (8-16); BILIRUBIN,TOTAL 0.3 mg/dL (0.2-1.0); BLOOD UREA NITROGEN 6 mg/dL (7-18); CO2 24 mmol/L (21-32); CREATININE 0.6 mg/dL (0.55-1.02); GLUCOSE,RANDOM 123 mg/dL (74-106); SGOT/AST 25 U/L (15-37); SGPT/ALT 33 U/L (12-78); TOT PROT 6.3 g/dl (6.4-8.2)
[2017-12-22] MEDS: PANTOPRAZOLE SODIUM 40 MG VIAL IVPUSH SCH (09:40)
[2017-12-22] MEDS: ENOXAPARIN NA (PORCINE) 40 MG/0.4 ML DISP.SYRIN SQ SCH (09:40)
[2017-12-22] MEDS ORDERED: BENZOCAINE/MENTH/CETYLPYRD CL 1 EACH LOZENGE MM PRN (10:10)
--- NOTE | 2017-12-22 10:10 | PN ---
Progress Note (short form) - Note Progress Note: Anesthesia post op note, POD#1 s/p cholecystectomy for acute cholecystitis, cholelithiasis, under GA. Pat seen and examined. Tolerating po.C/O sore throat. Reassured. Ordering cepacol Lozenges.
[2017-12-22] MEDS ORDERED: SODIUM CHLORIDE 1,000 ML IV SCH (10:29)
[2017-12-22 12:40] LABS: HEMATOCRIT 31.9 % (32.4-45.2); HEMOGLOBIN 9.5 GM/dL (10.7-15.3); MCH 20.5 pg (25.7-33.7); MCHC 29.9 g/dl (32.0-36.0); MEAN CELL VOLUME 68.5 fl (80-96); MEAN PLT VOLUME 8.7 fl (7.5-11.1); PLATELET COUNT 215 K/MM3 (134-434); RBC 4.66 M/mm3 (3.60-5.2); RDW 19.7 % (11.6-15.6); WHITE BLOOD COUNT 15.5 K/mm3 (4.0-10.0)
--- NOTE | 2017-12-22 12:59 | PN ---
Teaching Attending Note Name of Resident: Beck Arenas ATTENDING PHYSICIAN STATEMENT I saw and evaluated the patient. I reviewed the resident's note and discussed the case with the resident. I agree with the resident's findings and plan as documented. SUBJECTIVE:some abdominal pain with movement near the umbilical incision. tolerated diet. denies CP, SOB, fever, chills, N/V/C/D, no BRBPR, melena. no menses. no BM OBJECTIVE: Last Vital Signs Temp Pulse Resp BP Pulse Ox 98.3 F 76 18 97/66 97 12/22/17 08:00 12/22/17 08:00 12/22/17 08:00 12/22/17 08:00 12/21/17 21:00 General NAD Abdomen soft slightly distended. surgical incisions intact, no drainge or bleeding. slightly tender. ASSESSMENT AND PLAN: 32yo F with PMH morbid obesity presented to the ER with nausea/vomiting and R flank pain 1. Biliary colic- s/p laprascopic cholecytstecomy 12/21. no complications from surgery. no indication for abx at this time. will d/c with percocet. counseled on risks of taking narcotic medication. abuse and addicition potential. advised not to drive or operate machinery while taking medications and risks of constipation. will need to f/u with surgery next week. 2. Microcytic anemia- acute drop in Hgb. can be dilutional component vs during blood loss from surgery. minimal reported. will repeat Hgb. check iron studies. 3. Morbid obesity- BMI 45.9. dietary and lifestyle changes. educated on need to loose weight and risks factors assoc with overweight. does not want to consider bariatric surgery at this time. wants to attempt to loose weight on her own. counselled weight loss goal should be 1 lb per week. 4. DVT ppx- lovenox 5. d/c home pending repeat Hgb
--- NOTE | 2017-12-22 13:54 | PN ---
Progress Note (short form) - Note Progress Note: surgery pt seen and examined. feels well. no pain. tolerating diet. voiding. ambulating afebrile abd- soft, nt, nd, obese, incisions clean Laboratory Tests 12/22/17 12:07 WBC 15.5 H A/P 1) Pod#1- surgically stable for d/c on regular diet. off abx. off narcotics. f/u in about 2 weeks. [phone] ok to shower, ok to walk. ok to climb stairs. no lifting > 20lbs. 2 weeks off work. leukocytosis is reactive, no need for abx or continued hospitalization.
--- NOTE | 2017-12-22 17:20 | DS ---
Physical Exam: SUBJECTIVE: Patient seen and examined. S/p laparoscopic cholecystectomy. No acute events overnight. Patient says she feels much better than yesterday. Said her abdominal pain and right flank pain has completely resolved. She said the only thing that bothered her was her throat from surgery. She denies chest pain , nausea, vomiting, SOB, dizziness, abdominal pain, calf pain. OBJECTIVE: Vital Signs Period Temp Pulse Resp BP Sys/Hernandez Pulse Ox Last 24 Hr 98 F-98.6 F 72-90 14-20 94-127/60-81 91-100 PHYSICAL EXAM GENERAL: The patient is awake, alert, and fully oriented, in no acute distress. HEAD: Normal with no signs of trauma. EYES: PERRL, extraocular movements intact, conjunctiva clear. ENT: oropharynx clear without exudates, moist mucous membranes. NECK: Trachea midline, full range of motion, supple. LUNGS: Breath sounds equal, clear to auscultation bilaterally, no wheezes, no crackles, no accessory muscle use. HEART: Regular rate and rhythm, S1, S2 without murmur, rub or gallop. ABDOMEN: Soft, nontender, nondistended, hypoactive bowel sounds. Surgical incision site with no erythema, swelling or drainage. EXTREMITIES: 2+ pulses, warm, well-perfused, no edema. NEUROLOGICAL: Cranial nerves II through XII grossly intact. Normal speech, gait not observed. LABS Laboratory Results - last 24 hr 12/22/17 12/22/17 12/22/17 08:00 08:00 12:07 WBC 12.8 H 15.5 H RBC 4.32 4.66 Hgb 8.8 L D 9.5 L Hct 29.7 L 31.9 L MCV 68.7 L 68.5 L MCH 20.3 L 20.5 L MCHC 29.5 L 29.9 L RDW 20.1 H 19.7 H Plt Count 199 215 MPV 7.9 8.7 D Sodium 139 Potassium 4.1 Chloride 107 Carbon Dioxide 24 Anion Gap 8 BUN 6 L Creatinine 0.6 Creat Clearance w eGFR > 60 Random Glucose 123 H Calcium 7.6 L Total Bilirubin 0.3 AST 25 ALT 33 Alkaline Phosphatase 72 Total Protein 6.3 L Albumin 2.9 L HOSPITAL COURSE: Date of Admission:12/20/17 Date of Discharge: 12/22/17 Discharge Summary Reason For Visit: ABDOMINAL PAIN/VOMITING/CHOLELITHIASIS Current Active Problems Abdominal pain (Acute) Cholelithiasis (Acute) Morbid obesity (Acute) Vomiting (Acute) Condition: Improved - Instructions Diet, Activity, Other Instructions: You had your gallbladder removed because of stones in your gallbladder that were causing you pain. Follow up with your primary care physician in 1 week. please follow up with the surgeon in 1 week. Contact information on the one who performed your surgery has been provided. F/up with Dr. Lyn in two weeks [phone] Follow your doctor's instructions on cleaning the incision site. You do not need any antibiotics. For pain control, you can take Tylenol or Ibuprofen. Make sure to take plenty of water before you take Ibuprofen and take it after meals only. Wash your hands before and after cleaning the incision site, or changing the dressing. Keep the area clean and dry. no lifting > 20lbs. 2 weeks off work. Contact your doctor or go to the emergency room if your recovery is not progressing as expected or you develop complications such as: -Signs of infection, including fever and chills -Redness, swelling, increasing pain, excessive bleeding, or discharge at the incision site. -Cough, shortness of breath, chest pain. -Pain that you cannot control with the medications you've been given. -Blood in stool -Nausea/vomiting -Pain or swelling in your feet, calves or legs. Referrals: Brannon Mensah [Primary Care Provider] - 1 Week Keith Lyn MD [Staff Physician] - Disposition: HOME - Home Medications Comprehensive Discharge Medication List: Ambulatory Orders NK [No Known Home Medication] 12/20/17
--- NOTE | 2017-12-22 18:49 | PN ---
Physical Exam: SUBJECTIVE: Patient seen and examined. S/p laparoscopic cholecystectomy. Patient says she feels much better than yesterday. Said her abdominal pain and right flank pain has completely resolved with some soreness from the surgery. She said the only thing that bothered her was her throat from surgery. She denies chest pain, nausea, vomiting, SOB, dizziness, abdominal pain, calf pain. OBJECTIVE: Vital Signs Period Temp Pulse Resp BP Sys/Hernandez Pulse Ox Last 24 Hr 98 F-98.6 F 72-90 16-20 94-127/60-81 94-99 GENERAL: The patient is awake, alert, and fully oriented, in no acute distress. HEAD: Normal with no signs of trauma. EYES: PERRL, extraocular movements intact, conjunctiva clear. ENT: oropharynx clear without exudates, moist mucous membranes. NECK: Trachea midline, full range of motion, supple. LUNGS: Breath sounds equal, clear to auscultation bilaterally, no wheezes, no crackles, no accessory muscle use. HEART: Regular rate and rhythm, S1, S2 without murmur, rub or gallop. ABDOMEN: Soft, nontender, nondistended, hypoactive bowel sounds. Surgical incision site with no erythema, swelling or drainage. EXTREMITIES: 2+ pulses, warm, well-perfused, no edema. NEUROLOGICAL: Cranial nerves II through XII grossly intact. Normal speech, gait not observed. Laboratory Results - last 24 hr 12/22/17 12/22/17 12/22/17 08:00 08:00 12:07 WBC 12.8 H 15.5 H RBC 4.32 4.66 Hgb 8.8 L D 9.5 L Hct 29.7 L 31.9 L MCV 68.7 L 68.5 L MCH 20.3 L 20.5 L MCHC 29.5 L 29.9 L RDW 20.1 H 19.7 H Plt Count 199 215 MPV 7.9 8.7 D Sodium 139 Potassium 4.1 Chloride 107 Carbon Dioxide 24 Anion Gap 8 BUN 6 L Creatinine 0.6 Creat Clearance w eGFR > 60 Random Glucose 123 H Calcium 7.6 L Total Bilirubin 0.3 AST 25 ALT 33 Alkaline Phosphatase 72 Total Protein 6.3 L Albumin 2.9 L Active Medications Generic Name Dose Route Start Last Admin Trade Name Freq PRN Reason Stop Dose Admin Benzocaine/Menthol 1 each 12/22/17 10:10 Cepacol Lozenge - MM PRN PRN SORE THROAT Enoxaparin Sodium 40 mg 12/22/17 10:00 12/22/17 09:40 Lovenox - SQ 40 mg DAILY SHIRAZ Administration Hydromorphone HCl 1 mg 12/21/17 17:46 12/21/17 18:15 Dilaudid Injection - IVPUSH 1 mg [id number] PRN Administration PAIN-PACU ORDER X 4 DOSES ONLY Hydromorphone HCl 0.5 mg 12/21/17 18:00 12/22/17 04:32 Dilaudid Injection - IVPUSH 0.5 mg Q4H PRN Administration PAIN LEVEL 6-10 Ondansetron HCl 4 mg 12/21/17 18:00 Zofran Injection IVPUSH Q6H PRN NAUSEA AND/OR VOMITING Oxycodone HCl 7.5 mg 12/21/17 15:54 12/22/17 18:28 Roxicodone - PO 7.5 mg Q4H PRN Administration PAIN LEVEL 1-5 Pantoprazole Sodium 40 mg 12/22/17 10:00 12/22/17 09:40 Protonix Iv IVPUSH 40 mg DAILY SHIRAZ Administration Promethazine HCl 12.5 mg 12/21/17 17:46 Phenergan Injection - IVPUSH Q6H PRN NAUSEA-FOR RESCUE AFTER 15 MIN -Abd U/S: cholelithiasis, no sonographic evidence of acute cholecystitis, diffuse fatty infiltration -CT A/P w/o contrast: Normal appendix. Cholelithiasis. No CT evidence of acute cholecystitis. Common bile duct is not dilated. ASSESSMENT/PLAN: 32yo F with PMH morbid obesity presented to the ER with nausea/vomiting and R flank pain and was found to have cholelithiasis s/p cholecystectomy 12/21. #Biliary colic -S/p Cholecystectomy 12/21 -no complications from surgery at this time -Abdominal pain resolved -Not septic, afebrile -IV abx d/c'ed -Cont. Pain control w/ Oxycodone 7.5g q4h -Regular diet, tolerating well -Counseled on the risks of taking narcotics and its abuse/addiction potential. Also side of effects of constipation. -F/U surgery tomorrow #Microcytic Anemia -dilutional vs blood loss from surgery -currently 9.5 improving from last read of 8.8 -FU iron studies, H & H #Morbid Obesity -BMI 45.9 -Dietary and lifestyle changes -Does not want to consider bariatric surgery at this time and wants to lose weight on her own. Counseled on weight loss #PPX -Lovenox 40mg #FEN -No IV fluids -Monitor electrolytes -regular diet #Dispo D/c pending repeat hemoglobin count. Visit type - Emergency Visit Emergency Visit: Yes ED Registration Date: 12/20/17 Care time: The patient presented to the Emergency Department on the above date and was hospitalized for further evaluation of their emergent condition. - New Patient This patient is new to me today: No - Critical Care Critical Care patient: No
[2017-12-23] MEDS: oxyCODONE HCL 5 MG TABLET PO PRN ×2 (02:40→08:12)
[2017-12-23] MEDS ORDERED: DOCUSATE SODIUM 100 MG CAPSULE (FP) PO PRN (03:09)
[2017-12-23 08:25] VITALS: BP 132/74; PULSE 75; TEMP 98.1
[2017-12-23 09:08] LABS: BASO % 0.2 % (0-2.0); EOS % 0.3 % (0-4.5); HEMATOCRIT 29.3 % (32.4-45.2); HEMOGLOBIN 8.6 GM/dL (10.7-15.3); LYMPH % 36.5 % (8-40); MCH 20.5 pg (25.7-33.7); MCHC 29.4 g/dl (32.0-36.0); MEAN CELL VOLUME 69.8 fl (80-96); MEAN PLT VOLUME 7.8 fl (7.5-11.1); MONO % 5.8 % (3.8-10.2); NEUT % 57.2 % (42.8-82.8); PLATELET COUNT 188 K/MM3 (134-434); RDW 20.1 % (11.6-15.6); WHITE BLOOD COUNT 10.7 K/mm3 (4.0-10.0)
--- NOTE | 2017-12-23 09:38 | PN ---
Progress Note (short form) - Note Progress Note: c/o mild abdominal discomfort, worse on movement. tolerating diet. denies Cp, SOB< fever, chills Current Medications Generic Name Dose Route Start Last Admin Trade Name Freq PRN Reason Stop Dose Admin Benzocaine/Menthol 1 each 12/22/17 10:10 Cepacol Lozenge - MM PRN PRN SORE THROAT Docusate Sodium 100 mg 12/23/17 03:09 12/23/17 06:59 Colace - PO 100 mg Q8H PRN Administration CONSTIPATION Enoxaparin Sodium 40 mg 12/22/17 10:00 12/22/17 09:40 Lovenox - SQ 40 mg DAILY SHIRAZ Administration Hydromorphone HCl 1 mg 12/21/17 17:46 12/21/17 18:15 Dilaudid Injection - IVPUSH 1 mg [id number] PRN Administration PAIN-PACU ORDER X 4 DOSES ONLY Hydromorphone HCl 0.5 mg 12/21/17 18:00 12/22/17 04:32 Dilaudid Injection - IVPUSH 0.5 mg Q4H PRN Administration PAIN LEVEL 6-10 Ondansetron HCl 4 mg 12/21/17 18:00 Zofran Injection IVPUSH Q6H PRN NAUSEA AND/OR VOMITING Oxycodone HCl 7.5 mg 12/21/17 15:54 12/23/17 08:12 Roxicodone - PO 7.5 mg Q4H PRN Administration PAIN LEVEL 1-5 Pantoprazole Sodium 40 mg 12/22/17 10:00 12/22/17 09:40 Protonix Iv IVPUSH 40 mg DAILY SHIRAZ Administration Promethazine HCl 12.5 mg 12/21/17 17:46 Phenergan Injection - IVPUSH Q6H PRN NAUSEA-FOR RESCUE AFTER 15 MIN Last Vital Signs Temp Pulse Resp BP Pulse Ox 98.1 F 75 20 132/74 96 12/23/17 08:24 12/23/17 08:24 12/23/17 08:24 12/23/17 08:24 12/22/17 21:00 General NAD Abdomen soft slightly distended. surgical incisions intact, no drainge or bleeding. slightly tender. ASSESSMENT AND PLAN: 32yo F with PMH morbid obesity presented to the ER with nausea/vomiting and R flank pain 1. Biliary colic- s/p laprascopic cholecytstecomy 12/21. no complications from surgery. no indication for abx at this time. will d/c with percocet. counseled on risks of taking narcotic medication. abuse and addicition potential. advised not to drive or operate machinery while taking medications and risks of constipation. will need to f/u with surgery next week. 2. Microcytic anemia- acute drop in Hgb. can be dilutional component vs during blood loss from surgery. minimal reported. will repeat Hgb. check iron studies. 3. Morbid obesity- BMI 45.9. dietary and lifestyle changes. educated on need to loose weight and risks factors assoc with overweight. does not want to consider bariatric surgery at this time. wants to attempt to loose weight on her own. counselled weight loss goal should be 1 lb per week. 4. DVT ppx- lovenox 5. d/c home pending repeat Hgb Visit type - Emergency Visit Emergency Visit: Yes ED Registration Date: 12/20/17 Care time: The patient presented to the Emergency Department on the above date and was hospitalized for further evaluation of their emergent condition. - New Patient This patient is new to me today: No - Critical Care Critical Care patient: No - Discharge Referral Referred to [facility] Med P.C.: No
[2017-12-23] MEDS: ENOXAPARIN NA (PORCINE) 40 MG/0.4 ML DISP.SYRIN SQ SCH (09:39)
[2017-12-23] MEDS: PANTOPRAZOLE SODIUM 40 MG VIAL IVPUSH SCH (09:39)
--- NOTE | 2017-12-23 09:52 | PN ---
Progress Note (short form) - Note Progress Note: c/o severe pain, relieved with pain medication. tolerating diet. efren CP, SOB, fever, chills, N/V/C/D. +flatus, no BM but has urge to go Current Medications Generic Name Dose Route Start Last Admin Trade Name Freq PRN Reason Stop Dose Admin Benzocaine/Menthol 1 each 12/22/17 10:10 Cepacol Lozenge - MM PRN PRN SORE THROAT Docusate Sodium 100 mg 12/23/17 03:09 12/23/17 06:59 Colace - PO 100 mg Q8H PRN Administration CONSTIPATION Enoxaparin Sodium 40 mg 12/22/17 10:00 12/23/17 09:39 Lovenox - SQ 40 mg DAILY SHIRAZ Administration Hydromorphone HCl 1 mg 12/21/17 17:46 12/21/17 18:15 Dilaudid Injection - IVPUSH 1 mg [id number] PRN Administration PAIN-PACU ORDER X 4 DOSES ONLY Hydromorphone HCl 0.5 mg 12/21/17 18:00 12/22/17 04:32 Dilaudid Injection - IVPUSH 0.5 mg Q4H PRN Administration PAIN LEVEL 6-10 Ondansetron HCl 4 mg 12/21/17 18:00 Zofran Injection IVPUSH Q6H PRN NAUSEA AND/OR VOMITING Oxycodone HCl 7.5 mg 12/21/17 15:54 12/23/17 08:12 Roxicodone - PO 7.5 mg Q4H PRN Administration PAIN LEVEL 1-5 Pantoprazole Sodium 40 mg 12/22/17 10:00 12/23/17 09:39 Protonix Iv IVPUSH 40 mg DAILY SHIRAZ Administration Promethazine HCl 12.5 mg 12/21/17 17:46 Phenergan Injection - IVPUSH Q6H PRN NAUSEA-FOR RESCUE AFTER 15 MIN Last Vital Signs Temp Pulse Resp BP Pulse Ox 98.1 F 75 20 132/74 96 12/23/17 08:24 12/23/17 08:24 12/23/17 08:24 12/23/17 08:24 12/22/17 21:00 General NAD Abdomen soft surgical incisions intact, no drainge or bleeding. slightly tender. CBCD WBC 10.7 K/mm3 (4.0-10.0) H D 12/23/17 08:30 RBC 4.20 M/mm3 (3.60-5.2) 12/23/17 08:30 Hgb 8.6 GM/dL (10.7-15.3) L 12/23/17 08:30 Hct 29.3 % (32.4-45.2) L 12/23/17 08:30 MCV 69.8 fl (80-96) L 12/23/17 08:30 MCHC 29.4 g/dl (32.0-36.0) L 12/23/17 08:30 RDW 20.1 % (11.6-15.6) H 12/23/17 08:30 Plt Count 188 K/MM3 (134-434) 12/23/17 08:30 MPV 7.8 fl (7.5-11.1) D 12/23/17 08:30 ASSESSMENT AND PLAN: 32yo F with PMH morbid obesity presented to the ER with nausea/vomiting and R flank pain 1. Biliary colic- s/p laprascopic cholecytstecomy 12/21. no complications from surgery. no indication for abx at this time. will d/c with percocet. counseled on risks of taking narcotic medication. abuse and addiction potential. advised not to drive or operate machinery while taking medications and risks of constipation. will need to f/u with surgery in 2 week. 2. Microcytic anemia- likely dilutional. Hgb stable. no signs of bleeding. no indication for txn 3. Morbid obesity- BMI 45.9. dietary and lifestyle changes. educated on need to loose weight and risks factors assoc with overweight. does not want to consider bariatric surgery at this time. wants to attempt to loose weight on her own. counselled weight loss goal should be 1 lb per week. 4. DVT ppx- lovenox 5. d/c home with percocet prn medication #12 tabs. HCS not working unable to check for past history Visit type - Emergency Visit Emergency Visit: Yes ED Registration Date: 12/20/17 Care time: The patient presented to the Emergency Department on the above date and was hospitalized for further evaluation of their emergent condition. - New Patient This patient is new to me today: No - Critical Care Critical Care patient: No - Discharge Referral Referred to [facility] Med P.C.: No
--- NOTE | 2017-12-24 15:47 | DS ---
Physical Exam: Imaging: -Abd U/S: cholelithiasis, no sonographic evidence of acute cholecystitis, diffuse fatty infiltration -CT A/P w/o contrast: Normal appendix. Cholelithiasis. No CT evidence of acute cholecystitis. Common bile duct is not dilated. HOSPITAL COURSE: Date of Admission:12/20/17 32yo F with PMH morbid obesity presented to the ER with nausea/vomiting and R flank pain and was found to have cholelithiasis (on ABD u/S, CT A/P) s/p cholecystectomy 12/21 with no complications. Patient was given 3 doses of ABx ( Zosyn). for PPx. Pain was controlled with oxycodone. Patient was able to tolerate regular diet post-op. Post-op patient was afebrile with improvment of WBC count hence Abx was not continued. Patient's abdominal pain resolved and was clinically stable for discharge. She will be sent home on Percocet for pain control. She was advised to follow up wither PCP 1 week after d/c and Surgeon 2 weeks after D/c. Microcytic Anemia : no indication of treatment at this time Morbidly obese-BMI 45.9 -Dietary and lifestyle changes -Does not want to consider bariatric surgery at this time and wants to lose weight on her own. Counseled on weight loss Date of Discharge: 12/24/17 Minutes to complete discharge: 35 Discharge Summary Reason For Visit: ABDOMINAL PAIN/VOMITING/CHOLELITHIASIS Condition: Improved - Instructions Diet, Activity, Other Instructions: You had your gallbladder removed because of stones in your gallbladder that were causing you pain. Follow up with your primary care physician in 1 week. please follow up with the surgeon in 2 week. Contact information on the one who performed your surgery has been provided. Follow your doctor's instructions on cleaning the incision site. You do not need any antibiotics. For pain control, you can take Tylenol or Ibuprofen. Make sure to take plenty of water before you take Ibuprofen and take it after meals only. For severe pain you can take percocet. Caution using this medication as this can be habit forming. ALso side effects of drowsiness and constipation. Avoid driving or operating heavy machinery while using this medication. Drink plenty of water. Wash your hands before and after cleaning the incision site, or changing the dressing. Keep the area clean and dry. no lifting > 20lbs. 2 weeks off work. Contact your doctor or go to the emergency room if your recovery is not progressing as expected or you develop complications such as: -Signs of infection, including fever and chills -Redness, swelling, increasing pain, excessive bleeding, or discharge at the incision site. -Cough, shortness of breath, chest pain. -Pain that you cannot control with the medications you've been given. -Blood in stool -Nausea/vomiting -Pain or swelling in your feet, calves or legs. Referrals: Brannon Mensah [Primary Care Provider] - 1 Week Keith Lyn MD [Staff Physician] - Disposition: HOME - Home Medications Comprehensive Discharge Medication List: Ambulatory Orders Oxycodone HCl/Acetaminophen [Percocet 5-325 mg Tablet] 1 tab PO Q6H PRN #12 tablet MDD 20 12/23/17 This patient is new to me today: No Emergency Visit: Yes ED Registration Date: 12/20/17 Care time: The patient presented to the Emergency Department on the above date and was hospitalized for further evaluation of their emergent condition. Critical Care patient: No - Discharge Referral Referred to [facility] Med P.C.: No
--- NOTE | 2017-12-29 17:04 | PATH ---
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 Rec. #: [id number] /Age/Gender: 1985 (Age: 32) / F Account: [id number] Location: [address] [place] [address]/[facility] Taken: 12/21/2017 Received: 12/22/2017 Reported: 12/29/2017 Physicians: Mana Rae M.D. Specimen(s) Received GALLBLADDER Clinical History Acute cholecystitis Final Diagnosis GALLBLADDER, LAPAROSCOPIC CHOLECYSTECTOMY: CHRONIC CHOLECYSTITIS AND CHOLELITHIASIS. Electronically Signed Clau Peters M.D. Gross Description Received in formalin, labeled "gallbladder," is a 7.0 x 2.3 x 2.2 cm. gallbladder with a 0.2 cm. in length portion of cystic duct attached. The outer surface is and varies from smooth to shaggy. The lumen contains high, tenacious bile as well as a 3 cm in greatest dimension brown, ovoid cholelith. The mucosa is high-green and focally eroded. The wall of the gallbladder averages 0.1 cm. in thickness. Filter Tank Operator sections are submitted in one cassette. /12/23/2017 saudi12/23/2017
== END 2017-12-23 15:09 | disposition home or self-care (01) | DRG 418 ==
LOC: JER 13:37 → JERBED 18:51 → J6S 20:33
PROVIDERS: ADMIT Internal Medicine; ATTEND Internal Medicine
PROC: 0FT44ZZ Resection of Gallbladder, Percutaneous Endoscopic Approach (ICD-10-PCS; principal; 2017-12-21 14:30)
DX: K80.00 Calculus of gallbladder with acute cholecystitis without obstruction (principal); Z68.42 Body mass index [BMI] 45.0-49.9, adult; D50.9 Iron deficiency anemia, unspecified; E66.01 Morbid (severe) obesity due to excess calories
CPT/HCPCS: 36415; 71045-TC; 74176-TC; 76705-TC; 76775-TC; 80048; 80053; 81003; 81015; 82150; 83690; 83735; 84100; 84703; 85025; 85027; 86850; 86900; 86901; 87086; 88304-TC; 93005; 93010; 94760; 99282-25